=== PATIENT | male | born 1945 | race Caucasian/White ===

== ENCOUNTER 2017-01-26 22:17 | Inpatient (IN) | payer MEDICARE, OTHER ==
[~2017-01-26] VITALS: Ht 175.3 cm; Wt 94.1 kg
[~2017-01-26 22:17] MED LIST: ACETAMINOPHEN325 MG PO; ARICEPT10 MG PO; ARICEPT5 MG PO; ASPIR 8181 MG PO; CLARITIN10 MG PO; CULTURELLE1 EACH PO; CYCLOBENZAPRINE10 MG PO; HUMALOG100 UNIT/1 SQ; IMODIUM A-1 MG/7.5 M PO; IPRAT-ALBUT 0.5-3 ML NEB; LEVEMIR FL100 UNIT/1 SQ; LIPITOR40 MG PO; LISINOPRIL10 MG PO; NAMENDA10 MG PO; OMEPRAZOLE20 MG PO; PRINIVIL20 MG PO; RISPERDAL0.25 MG PO; RISPERDAL0.5 MG PO; SORBUTUSS LIQU474 ML PO; ZOFRAN4 MG PO; ZOLOFT25 MG PO
== END 2017-02-04 14:15 | DRG 194 ==
LOC: ER 22:17 → MED 23:42
PROVIDERS: ADMIT Internal Medicine
DX: J18.9 Pneumonia, unspecified organism (principal); N17.9 Acute kidney failure, unspecified; F05 Delirium due to known physiological condition; Y95 Nosocomial condition; E83.42 Hypomagnesemia; E87.5 Hyperkalemia; I12.9 Hypertensive chronic kidney disease with stage 1 through stage 4 chronic kidney disease, or unspecified chronic kidney disease; F02.80 Dementia in other diseases classified elsewhere, unspecified severity, without behavioral disturbance, psychotic disturbance, mood disturbance, and anxiety; G30.9 Alzheimer's disease, unspecified; E11.22 Type 2 diabetes mellitus with diabetic chronic kidney disease; N18.3 Chronic kidney disease, stage 3 (moderate); E78.5 Hyperlipidemia, unspecified; K21.9 Gastro-esophageal reflux disease without esophagitis; Z79.82 Long term (current) use of aspirin; Z79.899 Other long term (current) drug therapy; Z87.891 Personal history of nicotine dependence; Z83.3 Family history of diabetes mellitus; N40.0 Benign prostatic hyperplasia without lower urinary tract symptoms; Z79.4 Long term (current) use of insulin; G47.00 Insomnia, unspecified
CPT/HCPCS: 36415; 92610; 93306; 97162-GP; 97166; J1644; J1650; J3370; J7050

== ENCOUNTER 2017-01-26 22:17 | Emergency (ER) | payer MEDICARE, OTHER | END 2017-01-26 23:41 | disposition critical access hospital (66) | LOC: ER 22:17 | DX: J18.1 Lobar pneumonia, unspecified organism (principal); E11.22 Type 2 diabetes mellitus with diabetic chronic kidney disease; I12.9 Hypertensive chronic kidney disease with stage 1 through stage 4 chronic kidney disease, or unspecified chronic kidney disease; N18.9 Chronic kidney disease, unspecified; E87.5 Hyperkalemia; K21.9 Gastro-esophageal reflux disease without esophagitis; E78.5 Hyperlipidemia, unspecified; Z79.4 Long term (current) use of insulin; Z79.899 Other long term (current) drug therapy; Z88.8 Allergy status to other drugs, medicaments and biological substances | CPT/HCPCS: 96365 ==